=== PATIENT | female | born 2000 | race Caucasian/White ===

== ENCOUNTER → 2020-03-13 18:00 | Outpatient (BNVA) | payer BC, SELFPAY | PROVIDERS: Family Provider Electrodiagnostic Medicine; PCP Electrodiagnostic Medicine; Visit Provider Nurse Practitioner | DX: R50.9 Fever, unspecified (principal) | CPT/HCPCS: 87635 ==

== ENCOUNTER → 2024-01-20 10:54 | Outpatient (BNVA) | payer OTHER, SELFPAY | PROVIDERS: Family Provider Electrodiagnostic Medicine; PCP Family Medicine; Visit Provider Family Medicine | DX: O14.90 Unspecified pre-eclampsia, unspecified trimester (principal); Z34.80 Encounter for supervision of other normal pregnancy, unspecified trimester; R30.0 Dysuria | CPT/HCPCS: 80307; 81000; 81025; 84144; 84443; 84702; 85025; 86592; 86762; 86803; 86850; 86900; 87086; 87340; 87491; 87591; 87624; 87806 ==

== ENCOUNTER → 2024-03-02 10:49 | Outpatient (BNVA) | payer OTHER, SELFPAY | PROVIDERS: Family Provider Electrodiagnostic Medicine; PCP Family Medicine; Visit Provider Family Medicine | DX: O14.90 Unspecified pre-eclampsia, unspecified trimester (principal) | CPT/HCPCS: 84156 ==

== ENCOUNTER → 2024-03-23 10:07 | Outpatient (BNVA) | payer OTHER, SELFPAY | PROVIDERS: Family Provider Electrodiagnostic Medicine; PCP Family Medicine; Visit Provider Family Medicine | DX: Z34.80 Encounter for supervision of other normal pregnancy, unspecified trimester (principal) | CPT/HCPCS: 81511 ==

== ENCOUNTER 2024-04-16 11:39 | Outpatient (CLI) | payer OTHER, SELFPAY ==
[2024-04-16 11:37] VITALS: BMI 26.2
[2024-04-16 12:03] VITALS: BP 111/57; PULSE 93
[2024-04-16 12:18] VITALS: BP 112/59; PULSE 80
== END 2024-04-16 12:30 | disposition home or self-care (01) ==
LOC: OPOB 11:40 → OBGYN 11:41
PROVIDERS: Family Provider Electrodiagnostic Medicine; PCP Family Medicine; Visit Provider Family Medicine
DX: O26.899 Other specified pregnancy related conditions, unspecified trimester (principal); Z3A.00 Weeks of gestation of pregnancy not specified; N89.8 Other specified noninflammatory disorders of vagina
CPT/HCPCS: 83986; 99211

== ENCOUNTER → 2024-04-27 12:24 | Outpatient (BNVA) | payer OTHER, SELFPAY | PROVIDERS: Family Provider Electrodiagnostic Medicine; PCP Family Medicine; Visit Provider Family Medicine | DX: Z34.80 Encounter for supervision of other normal pregnancy, unspecified trimester (principal); R35.0 Frequency of micturition; R60.0 Localized edema; R30.0 Dysuria | CPT/HCPCS: 81000; 82570; 84156; 87086 ==

== ENCOUNTER → 2024-06-01 10:52 | Outpatient (BNVA) | payer OTHER, SELFPAY | PROVIDERS: Family Provider Electrodiagnostic Medicine; PCP Family Medicine; Visit Provider Family Medicine | DX: Z34.80 Encounter for supervision of other normal pregnancy, unspecified trimester (principal) | CPT/HCPCS: 82950 ==

== ENCOUNTER → 2024-06-29 09:30 | Outpatient (BNVA) | payer OTHER, SELFPAY | PROVIDERS: Family Provider Electrodiagnostic Medicine; PCP Family Medicine; Visit Provider Family Medicine | DX: Z51.81 Encounter for therapeutic drug level monitoring (principal) | CPT/HCPCS: 85025 ==

== ENCOUNTER 2024-07-06 06:37 | Outpatient (CLI) | payer OTHER, SELFPAY ==
--- NOTE | 2024-07-06 06:45 | USR_ITS ---
PROCEDURE INFORMATION: Exam: US , Limited Exam date and time: 07/06/2024 6:45 AM Age: 23 years old Clinical indication: Screening exam; Routine US, uterus; Additional info: Small for gestational age - nimco/efw in the next week if poss, ible LABS AND CLINICAL REPORTS: Gestational age (Established): 33 w 6 d Estimated due date (Established): 08/18/2024 TECHNIQUE: Imaging protocol: Real-time ultrasound of the maternal uterus with image documentation. Exam focused on the clinical indication. COMPARISON: US OB >= 14 weeks fetus [id number] 03/30/2024 11:15 AM FINDINGS: Gestation: There is a single living intrauterine in the cephalic presentation. heart rate: 136 bpm Placenta: Placenta is anterior without evidence of previa or abruption. Amniotic fluid index: NIMCO is 9.28 cm. BIOMETRY: Estimated weight: 1817.21 g. EFW by AC, BPD, FL, HC, [place]lock 1985 Biparietal diameter (BPD): 7.9 cm. EGA (BPD) is 31 w 5 d. 3.7 % percentile Head circumference (HC): 29.35 cm. EGA (HC) is 32 w 3 d. 3 % percentile Abdominal circumference (AC): 27.51 cm. EGA (AC) is 31 w 4 d. 4.6 % percentile Femur length (FL): 6.09 cm. EGA (FL) is 31 w 4 d. 3.1 % percentile AUA 31 weeks 6 days SUNI 09/01/2024 HC/AC: 1.07. (Normal range: 0.96 - 1.14) FL/HC: 20.75. (Normal range: 19.13 - 21.3) FL/BPD: 77.09. (Normal range: 71 - 87) FL/AC: 22.14. (Normal range: 20 - 24) Estimated weight 1817 g (4 lb 0 oz) Estimated weight (Hadlock)/GP 3.8% MATERNAL: Cervix: Cervical length measures 3.4 cm. The cervix is closed. US/US OB limited [id number] IMPRESSION: 1. Single living intrauterine as above. Fetus appears to be small for gestational age.
== END 2024-07-06 06:38 | disposition home or self-care (01) ==
LOC: RAD 06:38
PROVIDERS: PCP Family Medicine; Visit Provider Family Medicine
DX: O36.5931 Maternal care for other known or suspected poor fetal growth, third trimester, fetus 1 (principal)
CPT/HCPCS: 76815; 85025

== ENCOUNTER 2024-07-13 09:35 | Outpatient (CLI) | payer OTHER, SELFPAY ==
[2024-07-13] VITALS (7 sets, daily range): BP systolic 110–123; BP diastolic 56–75; PULSE 67–86; RESP 15; BMI 30.1
--- NOTE | 2024-07-13 09:46 | USR_ITS ---
PROCEDURE INFORMATION: Exam: US Biophysical Profile Without Non-Stress Test Exam date and time: 07/13/2024 10:30 AM Age: 23 years old Clinical indication: Other: Small gestational age; ; Additional info: Bpp for sga nimco and pulse index TECHNIQUE: Imaging protocol: US biophysical profile without non-stress testing. COMPARISON: US OB limited [id number] 07/06/2024 6:45 AM FINDINGS: There is a single living intrauterine in the cephalic presentation. heart rate: 153 bpm Amniotic fluid index: NIMCO is 9.61 cm. Free loop umbilical artery: Resistive index 0.55. Wave pattern is low resistance. Umbilical vein: Patent BIOPHYSICAL PROFILE: breathing (BPP): 2 /2 gross body movement (BPP): 2 /2 tone (BPP): 2 /2 Amniotic fluid (BPP): 2 /2 Biophysical profile score (BPP): 8 /8 MATERNAL ANATOMY: Cervix: Cervical length measures 2.6 cm. The cervix is closed. US/US OB BPP wo NST [id number] IMPRESSION: 1. biophysical profile 04/22.
== END 2024-07-13 11:05 | disposition home or self-care (01) ==
LOC: OPOB 09:37 → OBGYN 09:38
PROVIDERS: PCP Family Medicine; Visit Provider Family Medicine
DX: O26.899 Other specified pregnancy related conditions, unspecified trimester (principal); Z3A.00 Weeks of gestation of pregnancy not specified
CPT/HCPCS: 59025; 76819

== ENCOUNTER 2024-07-16 16:40 | Outpatient (CLI) | payer OTHER, SELFPAY ==
[2024-07-16 16:50] VITALS: BP 128/67; PULSE 79
[2024-07-16 16:57] VITALS: BMI 31.0
[2024-07-16 17:05] VITALS: BP 128/70; PULSE 83
[2024-07-16 17:19] VITALS: BP 127/68; PULSE 88
== END 2024-07-16 17:31 ==
LOC: OPOB 16:45 → OBGYN 16:46
PROVIDERS: PCP Family Medicine; Visit Provider Family Medicine
DX: O26.899 Other specified pregnancy related conditions, unspecified trimester (principal); Z3A.00 Weeks of gestation of pregnancy not specified
CPT/HCPCS: 59025; 99211

== ENCOUNTER 2024-07-20 09:46 | Outpatient (CLI) | payer OTHER, SELFPAY ==
--- NOTE | 2024-07-20 10:00 | USR_ITS ---
PROCEDURE INFORMATION: Exam: US Biophysical Profile Without Non-Stress Test Exam date and time: 07/20/2024 9:53 AM Age: 23 years old Clinical indication: Other: Small for age; ; Additional info: Small for gestational age, weekly nimco/bpp/umbilical artery pulsatility index TECHNIQUE: Imaging protocol: US biophysical profile without non-stress testing. COMPARISON: US OB BPP wo NST [id number] 07/13/2024 10:30 AM FINDINGS: There is a single living intrauterine in the cephalic presentation. The cervix is closed. Cervical length is 4.6 cm heart rate is 142 bpm. The placenta is anterior without evidence of previa or abruption. measurements: BPD 8.31 cm 33 weeks 3 days HC 31.49 cm 35 weeks 2 days AC 31.34 cm 35 weeks 2 days FL 6.8 cm 35 weeks 0 days AUA 34 weeks 5 days SUNI 08/26/2024 FL/AC: 21.70 FL/HC: 21.59 FL/BPD: 81.83 HC/AC: 1.00 Estimated weight 2567 g (5 lb 11 oz) AUA percentile 27.1% NIMCO 9.04 cm BPP 8/8 umbilical cord Doppler: Peak systolic velocity 39.2 cm/s with a resistive index of 0.56. Waveforms are low resistance. Peak systolic velocity of 43.1 cm/s with a resistive index of 0.63. Waveforms are low resistance. Peak systolic velocity 86.5 cm/s with a resistive index of 0.69. Waveforms are low resistance. Umbilical vein is patent. US/US OB BPP wo NST w umb IMPRESSION: 1. Single living intrauterine as above.
== END 2024-07-20 09:47 | disposition home or self-care (01) ==
LOC: RAD 09:47
PROVIDERS: PCP Family Medicine; Visit Provider Family Medicine
DX: O36.5931 Maternal care for other known or suspected poor fetal growth, third trimester, fetus 1 (principal)
CPT/HCPCS: 76819; 76820; 87081

== ENCOUNTER 2024-07-20 10:23 | Outpatient (CLI) | payer OTHER, SELFPAY ==
[2024-07-20 10:33] VITALS: BP 125/71; PULSE 100; TEMP 35.9
[2024-07-20 10:53] VITALS: BP 120/70; PULSE 88
[2024-07-20 11:06] VITALS: BP 125/71; PULSE 100; RESP 16; TEMP 36.4; O2SAT 99
== END 2024-07-20 11:06 | disposition home or self-care (01) ==
LOC: OPOB 10:25 → OBGYN 10:26
PROVIDERS: PCP Family Medicine; Visit Provider Family Medicine
DX: O36.5990 Maternal care for other known or suspected poor fetal growth, unspecified trimester, not applicable or unspecified (principal); Z3A.00 Weeks of gestation of pregnancy not specified
CPT/HCPCS: 59025; 99211

== ENCOUNTER 2024-07-23 17:18 | Outpatient (CLI) | payer OTHER, SELFPAY ==
[2024-07-23 17:23] VITALS: BMI 31.1
[2024-07-23 17:27] VITALS: BP 130/68; PULSE 78
[2024-07-23 17:41] VITALS: BP 118/61; PULSE 89
== END 2024-07-23 17:55 ==
LOC: OPOB 17:20 → OBGYN 17:21
PROVIDERS: PCP Family Medicine; Visit Provider Family Medicine
DX: O26.899 Other specified pregnancy related conditions, unspecified trimester (principal); Z3A.00 Weeks of gestation of pregnancy not specified; Z87.59 Personal history of other complications of pregnancy, childbirth and the puerperium
CPT/HCPCS: 59025

== ENCOUNTER 2024-07-27 13:45 | Outpatient (CLI) | payer OTHER, SELFPAY ==
[2024-07-27 13:45] VITALS: BMI 31.6
[2024-07-27 13:55] VITALS: BP 122/79; PULSE 90
[2024-07-27 14:15] VITALS: BP 122/74; PULSE 95
[2024-07-27 14:26] VITALS: BP 122/74; PULSE 95; RESP 16; O2SAT 99
== END 2024-07-27 14:26 | disposition home or self-care (01) ==
LOC: OPOB 13:49 → OBGYN 13:51
PROVIDERS: PCP Family Medicine; Visit Provider Family Medicine
DX: O36.5990 Maternal care for other known or suspected poor fetal growth, unspecified trimester, not applicable or unspecified (principal); Z3A.00 Weeks of gestation of pregnancy not specified
CPT/HCPCS: 59025

== ENCOUNTER 2024-07-29 19:13 | Inpatient (IN) | payer OTHER, SELFPAY ==
[2024-07-29] VITALS (52 sets, daily range): BP systolic 111–157; BP diastolic 57–85; PULSE 80–142; TEMP 36.4; O2SAT 92–100
--- NOTE | 2024-07-29 16:51 | P.HP_ITS ---
Providers/Chief Complaint Primary Care Provider: Marcelino Stevenson DO Chief Complaint: POSSIBLE LEAKING FLUID SINCE 929 History of Present Illness Ariela Castillo is a 23 year old @ 37.1 wks by LMP c/w 14 wk US. Preg c/b h/o VSD that self-closed, h/o preeclampsia, h/o symmetric IUGR, now with SGA on US. The patient presented to labor and delivery on the afternoon of 07/29/2024 at approximately 4:30 PM. She was getting ready for work at approximately 9:30 AM on the same day and had a gush of fluid. She thought she peed her pants, so changed and went to work. She had a couple more episodes of leakage of fluid and started having cramping that felt like period cramps. For this reason she went home, changed and came to triage for further evaluation. In triage the patient was found to be nitrazine positive and grossly ruptured. The patient denies chest pains, shortness of breath, nausea, vomiting, diarrhea, constipation, dysuria, vaginal bleeding, fevers. Medications/Allergies Home Medications Medication Instructions Recorded Confirmed Last Taken Type vitamins no.154-ferrous tab PO 01/20/24 07/20/24 Unknown History fumarate 27 mg-folic acid 1 mg tablet Allergies Allergy/AdvReac Type Severity Reaction Status Date / Time No Known Allergies Allergy Verified 01/20/24 10:55 PFSH Acute PFSH: Surgical History No pertinent past surgical history Social History Smoking and tobacco/nicotine status: never used tobacco/nicotine Alcohol intake: never Substance/Drug Use: never Current occupation: Working at [employer] Female Reproductive History: : 2 Vitals/I&O/Wt Last Vital Signs Pulse 100 07/29/24 16:48 BP 143/85 07/29/24 16:48 Physical Exam Narrative: General: Alert and oriented x3 Eyes: Pupils equal round and reactive to light and accommodation Mouth: Mucous membranes moist, pharynx non-erythematous Cardiac: Regular rate and rhythm without murmurs Lungs: Clear to auscultation bilaterally without wheezes, crackles or rhonchi Abdomen: Soft, non-tender, fundus consistent with gestational age Extremities: Trace edema in the bilateral lower extremities A&P Assessment and plan (1) Supervision of normal intrauterine in multigravida: The patient will be admitted for spontaneous rupture of membranes. Currently she is jessie sporadically every 2 to 5 minutes. The contractions are light in nature. heart tones are in the mid 130s with moderate va riability and good accelerations with a category 1 tracing. The patient is GBS negative. We will go ahead and start IV Pitocin to augment labor and the delivery process. She may receive a laboring epidural when desired. The patient is in agreement with current plan of care. (2) Small for gestational age fetus affecting management of mother: (3) Spontaneous rupture of membranes: Attestations Medical Necessity Statement*: The patient will be here for greater than 2 midnights due to routine intrapartum and management of labor and delivery. Coding Level of Care Code Acute Code for Chg Fwd Diagnoses Supervision of normal intrauterine in multigravida Z34.80 Small for gestational age fetus affecting management of mother O36.5990 Spontaneous rupture of membranes
[2024-07-29] MEDS: dextrose 5%-lactated ringers 1,000 ML 125 ML IV (18:06)
[2024-07-29] MEDS: oxytocin 30 UNIT/500 ML BAG IV (18:06)
[2024-07-29 18:10] LABS: Basophils # 0.1 10^3/uL (0.0-0.1); Basophils % 0.3 %; Eosinophils % 0.3 %; Hematocrit 35.3 % (36-47); Lymphocytes % 13.7 %; Mean Corpuscular HGB Conc 33.1 g/dL (30-55); Mean Corpuscular Hemoglobin 28.1 pg (27-33); Mean Corpuscular Volume 84.7 fl (85-98); Monocytes # 0.9 10^3/uL (0.2-0.9); Monocytes % 6.5 %; Neutrophils # 11.34 10^3/uL (1.8-7.7); Neutrophils % 78.6 %; Nucleated Red Blood Cells % 0 %; Platelet Count 309 10^3/cmm (157-399); Red Blood Count 4.17 10^6/uL (3.85-5.65); Red Cell Distribution Width 11.7 % (12.1-15.1); White Blood Count 14.41 10^3/uL (3.29-11.43)
[2024-07-29] MEDS: lactated ringers 1,000 ML 999 ML IV (19:40)
--- NOTE | 2024-07-29 20:52 | ANES.PREANE2 ---
Pre-Anesthetic Assessment Height/Weight: Height 1.63 m Weight 190 g Temp Pulse BP Pulse Ox O2 Del Method 97.5 F L 102 H 129/65 100 Room Air 07/29/24 18:08 07/29/24 20:50 07/29/24 20:50 07/29/24 20:48 07/29/24 17:00 Preop Diagnosis: labor pain epidural Familial anesthetic complications: none Was Beta Senthil taken within 24 hours: N/A Was Clonidine taken within 24 hours: N/A Social No alcohol and No tobacco Exam alert and oriented x 3 Airway Submandibular: within normal limits Cervical ROM: within normal limits Mallampati: Class II Dentition: full History/ROS No significant complaints Anesthetic Plan ASA status: 2 Anesthesia: Anesthesia Evaluation and Regional (specify below) Medications/Allergies Home Medications Medication Instructions Recorded Confirmed Last Taken Type vitamins no.154-ferrous tab PO 01/20/24 07/20/24 Unknown History fumarate 27 mg-folic acid 1 mg tablet Allergies Allergy/AdvReac Type Severity Reaction Status Date / Time No Known Allergies Allergy Verified 01/20/24 10:55 Current Medications Generic Name Dose Route Start Last Admin Trade Name Freq PRN Reason Stop Dose Admin Dextrose/Lactated Ringer's 1,000 mls @ 125 mls/hr 07/29/24 16:45 07/29/24 18:06 Dextrose 5%-Lactated Ringers IV 125 mls/hr .Q8H RAHUL Administration Oxytocin 30 unit in 500 mls @ 1 mls/hr 07/29/24 16:45 07/29/24 18:06 Pitocin IV 2 milliunit/min .Q24H RAHUL 2 mls/hr Administration Protocol 1 MILLIUNIT/MIN PFSH Anesthesia Surgical History No pertinent past surgical history Social History Smoking and tobacco/nicotine status: never used tobacco/nicotine Alcohol intake: never Substance/Drug Use: never Current occupation: Working at [employer] Female Reproductive History : 2 Data Anesthesia 07/29/24 16:50 Short CBC 07/29/24 Range/Units 16:50 WBC 14.41 H (3.29-11.43) 10^3/uL Hgb 11.70 (11.27-16.99) g/dL Hct 35.3 L (36-47) % MCV 84.7 L (85-98) fl Plt Count 309 (157-399) 10^3/cmm Neut % (Auto) 78.6 % Neut # (Auto) 11.34 H (1.8-7.7) 10^3/uL Blood Bank 07/29/24 16:50 Blood Type B Positive Rho(D) Type Rh positive Antibody Screen Negative Cardiac Studies: No Data to Display
--- NOTE | 2024-07-29 20:53 | ANES.PROC ---
Anesthesia Procedures Procedure/Date: 07/29/24 Epidural: Time Out Performed: Yes Consents Signed: Procedure Consent Consent: from patient, risks and benefits reviewed and patient agrees to proceed Lumbar Level: L3-L4 Epidural position: sitting Epidural procedure: sterile prep of area, 1% lidocaine to numb the area, 18 g needle, negative for paresthesia passed, neg for paresthesia, test dose given, 1.5% xylocaine 1:200k epi, placed PCEA, no systemic response, sterile dressing applied, L.U.D. no apparent complications and 0.2% Ropiavacaine @ mls/hr (10) Additional Comments: NAHUN at 5, CSF return through catheter, removed and upon second attempt negative CSF/heme upon aspiration, negative test dose. pt states relief from contractions.
[2024-07-29] MEDS: ROPivacaine syringe 100 MG/50 ML SYRINGE 10 MG EPIDURAL (21:53)
--- NOTE | 2024-07-29 22:10 | PC.NURSE ---
straight catheterization completed by physician after delivery. 20 mls collected for urine drug screen. bladder drained completely into delivery drape by physician.
--- NOTE | 2024-07-29 22:32 | P.PCNOB_ITS ---
Delivery Note: Date of delivery: July 29, 2024 Pre-Delivery Course: Ariela Castillo is a 23 year old G2 now P1 status post spontaneous vaginal delivery@ 37.1 wks by LMP c/w 14 wk US. Preg c/b h/o VSD that self-closed, h/o preeclampsia, h/o symmetric IUGR, now with SGA on US. The patient presented to labor and delivery on the afternoon of 07/29/2024 at approximately 4:30 PM. She was getting ready for work at approximately 9:30 AM on the same day and had a gush of fluid. She thought she peed her pants, so changed and went to work. She had a couple more episodes of leakage of fluid and started having cramping that felt like period cramps. For this reason she went home, changed and came to triage for further evaluation. In triage the patient was found to be nitrazine positive and grossly ruptured. The patient was started on IV Pitocin to augment labor. The patient was 1 to 2 cm upon presentation. The patient was GBS negative. She began to have regular contractions and made rapid change. She received a laboring epidural. She was complete by 2146 on 07/29/2024. Delivery: The patient began pushing at 2146 on 07/29/2024. The patient pushed well. The delivered in the OA position at 2203 on 07/29/2024. The right shoulder was the anterior shoulder. It delivered with difficulty. The left hand was wrapped around in front of the 's face. I attempted to deliver the left arm, but it did not deliver with ease. Finally with steady downward pressure, the right shoulder delivered followed by delivery of the left shoulder with upward pressure. The rest of the infant delivered with steady pulling on the body. The infant's mouth and nose were bulb suctioned by myself. The was crying shortly after delivery. The infant was placed on the mother's chest where the nurses were waiting to care for her. The cord was clamped by myself and cut by the infant's father after approximately 1 minute. Cord blood was obtained. The cord was then drained of blood and traction was placed on the umbilical cord. The placenta delivered without complication at 220 on 07/29/2024. The placenta was noted to be intact with a central umbilical cord insertion site. The cervix was inspected and no lacerations were noted. The vaginal wall was inspected and a small abrasion in the periurethral area was noted. No lacerations were noted otherwise. The patient's uterus was noted to be high in the abdomen. There had not been time to drain the bladder after the epidural, so a red rubber catheter was placed to drain the bladder. A urine sample was obtained with this to send for routine testing. The uterus then was massaged and noted to be lower in the pelvis. Currently both the mother and infant are doing well. History History History 2 Term 1 1 Miscarriages/Ectopic 0 Living Children 2 Past Pregnancies Del. Date GA/Weeks Outcome Route Wt Inf Gender Labor Lgth Comp. Anesth esia Location 03/25/18 36 live - Vaginal 4 lb 7 oz Male 24 hr [facility] 07/29/24 37 live - full term Vaginal 5 lb 13 oz Female 5 hr Other [facility] Delivery Date: 03/25/18 Last Updated by: Geovani Waters MD Preeclampsia, symmetric IUGR Delivery Date: 07/29/24 Last Updated by: Geovani Waters MD PROM, SGA A&P Assessment and plan (1) Spontaneous vaginal delivery: (2) Spontaneous rupture of membranes: Coding Level of Care Code Acute Code for Chg Fwd Diagnoses Spontaneous vaginal delivery O80 Spontaneous rupture of membranes
[2024-07-29 22:59] LABS: Amphetamines Screen Urine Negative (Negative); Barbiturates Screen Urine Negative (Negative); Benzodiazepines Screen Urine Negative (Negative); Cocaine Screen Urine Negative (Negative); Opiate Screen Urine Negative (Negative); PCP Screen Urine Negative (Negative); THC Screen Urine Negative (Negative)
[2024-07-30] VITALS (12 sets, daily range): BP systolic 111–130; BP diastolic 62–79; PULSE 83–115; RESP 14–18; TEMP 36.2–36.9; O2SAT 97–98
[2024-07-30] MEDS: lanolin oint 7 gm 1 APPLIC TOPICAL (07:21)
[2024-07-30] MEDS: docusate sodium 100 mg Capsule PO ×2 (09:17→21:40)
[2024-07-30] MEDS: ibuprofen 800 mg tablet PO ×2 (09:17→16:08)
[2024-07-30] MEDS: PRENATAL VIT NO.130/IRON/FOLIC 1 EACH TABLET PO (09:17)
[2024-07-30 11:07] LABS: Hematocrit 28.8 % (36-47); Mean Corpuscular HGB Conc 32.6 g/dL (30-55); Mean Corpuscular Hemoglobin 28.1 pg (27-33); Mean Corpuscular Volume 86.2 fl (85-98); Mean Platelet Volume 10.8 fL (7.4-10.4); Platelet Count 242 10^3/cmm (157-399); Red Blood Count 3.34 10^6/uL (3.85-5.65); Red Cell Distribution Width 11.7 % (12.1-15.1); White Blood Count 17.66 10^3/uL (3.29-11.43)
--- NOTE | 2024-07-30 12:00 | ANE.PACU2 ---
Inpatient post-anesthesia follow up: Airway intact: Yes Vital signs: Temperature 98.3 F Pulse Rate 91 Respiratory Rate 14 Blood Pressure 122/79 Pulse Oximetry 97 Oxygen Delivery Me thod Room Air Oxygen Flow Rate Fraction of Inspir ed Oxygen Hydration adequate: Yes Nausea and vomiting: No Pain level: 1 Mental status: Baseline Epidural Start/End: Epidural Start Date: 07/29/24 Epidural Start Time: 20:25 Epidural End Date: 07/30/24 Epidural End Time: 00:43
--- NOTE | 2024-07-30 14:02 | P.PN_ITS ---
Subjective 2 Subjective: The patient is doing well at this time. She is ambulating, voiding, passing gas and tolerating food by mouth. Her bleeding is decreasing well. Her pain is well-controlled. Vitals/I&O/Wt Last Vital Signs Temp 98.3 F 07/30/24 10:15 Pulse 91 07/30/24 10:15 Resp 14 07/30/24 10:15 BP 122/79 07/30/24 10:15 Pulse Ox 97 07/30/24 10:15 O2 Del Method Room Air 07/30/24 10:15 07/29/24 07/30/24 07/30/24 22:59 06:59 14:59 Intake Total 319.766 / 319.766 Output Total 1000 / 1020 Balance 299.766 / 299.766 -1000 / -700.234 Weight last 48 hrs Weight 6.702 oz Physical Exam 2 Narrative: General: Alert and oriented x3 Cardiac: Regular rate and rhythm without murmurs Lungs: Clear to auscultation bilaterally without wheezes, crackles or rhonchi Abdomen: Soft, mild tenderness over uterus. The uterus is firm and 2 cm below the umbilicus. Extremities: +1 pitting edema in the bilateral lower extremities Data 07/30/24 10:50 A&P Assessment and plan (1) Spontaneous vaginal delivery: The patient is doing well at this time. She is showing no signs of significant complications. Her bleeding is decreasing well. Her hemoglobin did drop to 9.4. We will add iron. The patient will be monitored throughout the evening and we will look at possible discharge home tomorrow depending on how she does. All questions were answered. Attestations 2 Medical Necessity Statement*: The patient continues to need inpatient care as she recovers after her vaginal delivery. Her stay will cross 2 midnights. Coding Level of Care Code Acute Code for Chg Fwd Diagnoses Spontaneous vaginal delivery O80
[2024-07-30] MEDS: ferrous sulfate EC 325 mg Tablet PO (21:40)
[2024-07-31 04:00] VITALS: BP 113/75; PULSE 87; RESP 16; TEMP 36.7
[2024-07-31 09:50] VITALS: BP 117/70; PULSE 101; RESP 16; TEMP 36.6
[2024-07-31] MEDS: ferrous sulfate EC 325 mg Tablet PO (09:50)
[2024-07-31] MEDS: ibuprofen 800 mg tablet PO (09:50)
[2024-07-31] MEDS: docusate sodium 100 mg Capsule PO (11:03)
[2024-07-31] MEDS: PRENATAL VIT NO.130/IRON/FOLIC 1 EACH TABLET PO (11:04)
--- NOTE | 2024-07-31 11:21 | P.DS_ITS ---
Discharge Providers Date of Admission: 07/29/24 19:13 Date of Discharge: July 31, 2024 Attending Provider at Admission: Geovani Waters MD Attending Provider at Discharge: Geovani Waters MD Primary Care Provider: Marcelino Stevenson DO Diagnoses at Discharge Discharge Diagnosis (1) Spontaneous vaginal delivery: Status: Acute Reason for Visit Reason for Visit: POSSIBLE LEAKING FLUID SINCE 929 Brief History: Ariela Castillo is a 23 year old G2 now P2 status post spontaneous vaginal delivery@ 37.1 wks by LMP c/w 14 wk US. Preg c/b h/o VSD that self-closed, h/o preeclampsia, h/o symmetric IUGR, now with SGA on US. The patient presented to labor and delivery on the afternoon of 07/29/2024 at approximately 4:30 PM. She was getting ready for work at approximately 9:30 AM on the same day and had a gush of fluid. She thought she peed her pants, so changed and went to work. She had a couple more episodes of leakage of fluid and started having cramping that felt like period cramps. For this reason she went home, changed and came to triage for further evaluation. In triage the patient was found to be nitrazine positive and grossly ruptured. Hospital Course Hospital Course The patient was started on IV Pitocin to augment labor. The patient was 1 to 2 cm upon presentation. The patient was GBS negative. She began to have regular contractions and made rapid change. She received a laboring epidural. She was complete by 2146 on 07/29/2024. The patient delivered and 2203 on 07/29/2024. There was a tight squeeze, however the infant delivered without complication. The patient did not have any complications afterward. , her bleeding is decreasing well. She is ambulating, voiding, passing gas and tolerating food by mouth. She is showing no signs of complications. Her hemoglobin did drop from 11.7 to 9.4. She will take iron as an outpatient. Routine discharge instructions were discussed. All questions were answered. The patient is in agreement with discharge home at this time. Physical Exam Narrative: General: Alert and oriented x3 Cardiac: Regular rate and rhythm without murmurs Lungs: Clear to auscultation bilaterally without wheezes, crackles or rhonchi Abdomen: Soft, mild tenderness over uterus. The uterus is firm and 2 cm below the umbilicus. Extremities: +1 pitting edema in the bilateral lower extremities Discharge Data Studies Completed and Pending Laboratory Results WBC 17.66 10^3/uL (3.29-11.43) H 07/30/24 10:50 RBC 3.34 10^6/uL (3.85-5.65) L 07/30/24 10:50 Hgb 9.40 g/dL (11.27-16.99) L 07/30/24 10:50 Hct 28.8 % (36-47) L 07/30/24 10:50 MCV 86.2 fl (85-98) 07/30/24 10:50 MCH 28.1 pg (27-33) 07/30/24 10:50 MCHC 32.6 g/dL (30-55) 07/30/24 10:50 RDW 11.7 % (12.1-15.1) L 07/30/24 10:50 Plt Count 242 10^3/cmm (157-399) 07/30/24 10:50 MPV 10.8 fL (7.4-10.4) H 07/30/24 10:50 Neut % (Auto) 78.6 % 07/29/24 16:50 Lymph % (Auto) 13.7 % 07/29/24 16:50 [place] % (Auto) 6.5 % 07/29/24 16:50 Eos % (Auto) 0.3 % 07/29/24 16:50 Baso % (Auto) 0.3 % 07/29/24 16:50 Neut # (Auto) 11.34 10^3/uL (1.8-7.7) H 07/29/24 16:50 Lymph # (Auto) 2.0 10^3/uL (0.8-4.8) 07/29/24 16:50 [place] # (Auto) 0.9 10^3/uL (0.2-0.9) 07/29/24 16:50 Eos # (Auto) 0.0 10^3/uL (0.0-0.8) 07/29/24 16:50 Baso # (Auto) 0.1 10^3/uL (0.0-0.1) 07/29/24 16:50 Nucleated RBC % (auto) 0 % 07/29/24 16:50 Nucleated RBCs # 0.0 /100WBC 07/29/24 16:50 Urine Opiates Screen Negative ng/mL (Negative) 07/29/24 22:05 Ur Barbiturates Screen Negative ng/mL (Negative) 07/29/24 22:05 Ur Phencyclidine Scrn Negative ng/mL (Negative) 07/29/24 22:05 Ur Amphetamines Screen Negative ng/mL (Negative) 07/29/24 22:05 U Benzodiazepines Scrn Negative ng/mL (Negative) 07/29/24 22:05 Urine Cocaine Screen Negative ng/mL (Negative) 07/29/24 22:05 U Marijuana (THC) Screen Negative ng/mL (Negative) 07/29/24 22:05 Blood Type B Positive 07/29/24 16:50 Rho(D) Type Rh positive 07/29/24 16:50 Antibody Screen Negative 07/29/24 16:50 Vitals Last Vital Signs Temp 97.9 F 07/31/24 09:50 Pulse 101 H 07/31/24 09:50 Resp 16 07/31/24 09:50 BP 117/70 07/31/24 09:50 Pulse Ox 98 07/30/24 21:47 O2 Del Method Room Air 07/31/24 09:50 Discharge Plan Discharge Patient Disposition: Home Condition: Good Prescriptions: New ibuprofen 800 mg Tablet 800 mg PO TID Qty: 30 0RF ferrous sulfate 325 mg (65 mg iron) Tablet,Delayed Release (Dr/Ec) 325 mg PO BIDWM Qty: 60 0RF Continued PNV no.154-iron fumarate-folic 27 mg iron- 1 mg tablet PO Discharge Orders: Discharge Order (Routine); Ordered 07/31/24 Ordered By: Geovani Waters Referrals: Geovani Waters MD [Physician] - 09/06/24 9:20 am Discharge Diet: Regular Discharge Activity: Increase activity as tolerated Patient Instructions: Depression (DC), Opioid Safety (DC), Preeclampsia and Eclampsia After Delivery (GEN), Hemorrhage (DC), OB Discharge Report, OB Food/Drug Interaction Guide, Opioid Safety, OB [facility], OB Vaginal Deliveries, Abnormal Bleeding Activity Restrictions/Additional Instructions: Nothing per vagina for 6 weeks. Showers are recommended instead of baths for the first 6 weeks. Discharge Attestations Time Spent in Discharge Care*: less than 30 min Quality Metrics Clinical Quality Measures [ No reported AMI, CVA or VTE this stay] Coding Level of Care Code Acute Code for Chg Fwd Diagnoses Spontaneous vaginal delivery O80
[2024-07-31] MEDS: flu vacc pf 24-25 (6 mos+) SYRINGE 45 MCG IM (13:27)
[2024-07-31 14:10] VITALS: BP 116/80; PULSE 97; RESP 16; TEMP 36.7; O2SAT 98
== END 2024-07-31 14:20 | disposition home or self-care (01) | DRG 807 ==
LOC: OPOB 19:13 → OBGYN 19:13
PROVIDERS: Admitting Provider Family Medicine; PCP Family Medicine; Visit Provider Family Medicine
DX: O80 Encounter for full-term uncomplicated delivery (principal); Z37.0 Single live birth; Z3A.37 37 weeks gestation of pregnancy
CPT/HCPCS: 36415; 59025; 59409; 80306; 83986; 85025; 85027; 86850; 86900; 90471; 90686; 98960; J2590; J2795; J7120; J7121

== ENCOUNTER → 2025-05-09 13:48 | Outpatient (BNVA) | payer OTHER, SELFPAY | PROVIDERS: PCP Family Medicine; Visit Provider Nurse Practitioner | DX: L02.91 Cutaneous abscess, unspecified (principal) | CPT/HCPCS: 87070 ==